=== PATIENT | female | born 1995 | race Caucasian/White ===

== ENCOUNTER 2016-05-14 18:36 | Emergency (ER) | payer OTHER ==
[~2016-05-14] VITALS: Ht 154.9 cm; Wt 49.8 kg
[~2016-05-14 18:36] MED LIST: FLEXERIL10 MG PO; IBUPROFEN800 MG PO; KEFLEX500 MG PO; MOTRIN IB200 MG PO; MOTRIN600 MG PO; Motrin PO; PRENATAL TABLE1 EAC3 PO
[2016-05-14] MEDS ORDERED: MEDROL DOSEPAK4 MG PO (20:53)
[2016-05-14] MEDS ORDERED: ZANTAC300 MG PO (20:53)
[2016-05-14] MEDS ORDERED: MOTRIN600 MG PO (20:53)
[2016-05-14 21:02] VITALS: BP 118/90
== END 2016-05-14 21:05 | disposition home or self-care (01) ==
LOC: EME 18:36
DX: J02.9 Acute pharyngitis, unspecified (principal)
CPT/HCPCS: 70360; 99281; 99284; J1885

== ENCOUNTER 2017-08-07 09:12 | Emergency (ER) | payer OTHER ==
[~2017-08-07] VITALS: Ht 154.9 cm; Wt 47.9 kg
[~2017-08-07 09:12] MED LIST changes: +MEDROL DOSEPAK4 MG PO; +ZANTAC300 MG PO
[2017-08-07 10:01] LABS: BASOPHIL (%) 0.7 % (0-1); EOSINOPHIL (%) 0 % (0-5); HEMATOCRIT 37.2 % (36.0-46.0); HEMOGLOBIN 13.1 G/DL (11.9-15.5); IMMATURE GRANULOCYTE (%) 0.2 % (0.0-0.7); LYMPHOCYTE (%) 38.5 % (15-42); LYMPHOCYTE COUNT 1.7 K/uL (1.0-2.8); MCH 32.3 PG (29.0-34.0); MCHC 35.2 G/DL (30.0-36.0); MCV 91.6 FL (83-99); MONOCYTE (%) 8.2 % (3-12); MONOCYTE COUNT 0.4 K/uL (0-0.8); NEUTROPHIL (%) 52.4 % (45-76); NEUTROPHIL COUNT 2.3 K/uL (1.8-6.4); PLATELET COUNT 261 K/uL (156-360); RBC DIS.WIDTH-CV 12.8 % (11.8-14.6); RBC DIS.WIDTH-SD 42.6 % (39-53); RED BLOOD COUNT 4.06 M/uL (3.80-5.20); WHITE BLOOD COUNT 4.3 K/uL (4.1-10.2)
[2017-08-07 10:09] LABS: CHLORIDE 105 mEq/L (99-109); POTASSIUM 3.8 mEq/L (3.7-5.4); SODIUM 139 mEq/L (136-147)
[2017-08-07 10:10] LABS: D-DIMER ELISA < 150.00 ng/mLDDU (<230); GLUCOSE 80 mg/dL (70-99)
[2017-08-07 10:14] LABS: CREATININE 0.6 mg/dL (0.6-1.3); GFR ESTIMATE (CALCULATED) > 59 mL/min/
[2017-08-07 10:15] LABS: UREA NITROGEN (BUN) 13 mg/dL (9-23)
[2017-08-07 10:20] LABS: TROP-I INTERPRETATION NEGATIVE; TROPONIN-I < 0.01 ng/mL (0.0-0.30)
[2017-08-07] MEDS ORDERED: MOTRIN800 MG PO (11:20)
[2017-08-07 11:27] VITALS: BP 93/56
== END 2017-08-07 11:29 | disposition home or self-care (01) ==
LOC: EME 09:12
PROVIDERS: Emergency Medicine
DX: R07.89 Other chest pain (principal)
CPT/HCPCS: 71045; 80048; 84484; 85025; 85379; 93005; 99281; 99283